=== PATIENT | male | born 1960 | race Two or more races ===

== ENCOUNTER → 2017-11-04 08:39 | Outpatient (CLI) | payer OTHER | END | disposition home or self-care (01) | LOC: LAB 08:39 | DX: E10.9 Type 1 diabetes mellitus without complications (principal); N40.0 Benign prostatic hyperplasia without lower urinary tract symptoms; Z13.29 Encounter for screening for other suspected endocrine disorder; R74.0 Nonspecific elevation of levels of transaminase and lactic acid dehydrogenase [LDH]; E29.1 Testicular hypofunction; Z12.11 Encounter for screening for malignant neoplasm of colon ==

== ENCOUNTER → 2019-06-05 | Outpatient (CLI) | payer OTHER | END | disposition home or self-care (01) | LOC: SONOGRAMA 10:19 | DX: R17 Unspecified jaundice (principal) ==

== ENCOUNTER 2021-07-21 08:31 | Outpatient (CLI) | payer OTHER | END 2021-07-21 09:00 | disposition home or self-care (01) | LOC: MRI 08:31 | PROVIDERS: ATTEND Radiology Diagnostic Radiology | DX: M79.672 Pain in left foot (principal) | CPT/HCPCS: 73718 ==